=== PATIENT | male | born 1960 | race Hispanic/Latino ===

== ENCOUNTER 2025-06-12 10:36 | Emergency (ER) | payer BC, SELFPAY ==
[2025-06-12 11:05] LABS: #Basophils 0.05 10x3/uL (0.0-0.2); #Eosinophils 0.21 10x3/uL (0.0-0.7); #Monocytes 1.27 10x3/uL (0.11-0.59); #Neutrophils 7.29 10x3/uL (1.40-6.50); %Basophils 0.5 % (0.0-1.0); %Eosinophils 2.1 % (0.0-10.0); %Lymphocytes 13.1 % (21.0-51.0); %Monocytes 12.5 % (0.0-10.0); %Neutrophils 71.4 % (42.0-75.0); Hematocrit 32.3 % (42.0-52.0); Hemoglobin 10.6 g/dL (14.0-18.0); Mean Corpuscular Hemoglobin 28.6 pg (27.0-31.0); Mean Corpuscular Volume 87.1 fL (78.0-98.0); Platelet Count 261 10x3/uL (130-400); Red Blood Cell (RBC) Count 3.71 mill/uL (4.70-6.10); White Blood Cell (WBC) Count 10.20 10x3/uL (4.8-10.8)
[2025-06-12 11:18] LABS: INR-International Normal Ratio 1.1; Prothrombin Time 14.3 sec (12.0-14.7)
[2025-06-12 11:19] LABS: PTT 37.1 sec (22.9-36.1)
[2025-06-12 11:31] LABS: ALT (SGPT) 84 U/L (Less than 45); AST (SGOT) 108 U/L (11-34); Albumin 3.2 g/dL (3.1-4.5); Alkaline Phosphatase 244 U/L (40-110); Anion Gap 11 mmol/L (10-20); BUN (Urea Nitrogen) 17 mg/dL (8.4-25.7); Bilirubin, Total 0.6 mg/dL (0.3-1.2); Calc. Creatinine Clearance 0 mL/min (70-130); Calcium 9.1 mg/dL (7.8-10.44); Carbon Dioxide 25 mmol/L (23-31); Chloride 104 mmol/L (98-107); Globulin 3.9 g/dL (2.4-3.5); Glucose 85 mg/dL (80-115); Lipase 38 U/L (8-78); Potassium 4.0 mmol/L (3.5-5.1); Sodium 136 mmol/L (136-145)
[2025-06-12] MEDS ORDERED: Iopamidol-370 76% 500 ML MDV (1 ML CHARGE) ONE (13:56)
[2025-06-12 14:10] LABS: Bacteria/HPF None Seen HPF (None Seen); CAUTI Indications for Culture Dysuria,urgency,freq; Glucose, Urine (Dipstick) Normal (Negative); Leukocyte Negative Leu/uL (Negative); Protein, Urine (Dipstick) Negative (Neg-Trace); RBC/HPF 0-3 HPF (0-3); Specific Gravity, Urine 1.049 (1.002-1.036); WBC/HPF None Seen HPF (0-3)
[2025-06-12 14:13] LABS: Urine Culture Reflex No No
== END 2025-06-12 12:27 | disposition home or self-care (01) ==
LOC: ERS 10:36
DX: K92.2 Gastrointestinal hemorrhage, unspecified (principal); N13.2 Hydronephrosis with renal and ureteral calculous obstruction; C78.7 Secondary malignant neoplasm of liver and intrahepatic bile duct; E78.5 Hyperlipidemia, unspecified; F17.210 Nicotine dependence, cigarettes, uncomplicated; Z79.82 Long term (current) use of aspirin
CPT/HCPCS: 71045; 74177; 80053; 83690; 84484; 85025; 85610; 85730; 93005; 96374; Q9967

== ENCOUNTER 2025-06-12 17:18 | Inpatient (IN) | payer OTHER, SELFPAY ==
[2025-06-12 17:47] LABS: #Basophils 0.05 10x3/uL (0.0-0.2); #Eosinophils 0.20 10x3/uL (0.0-0.7); #Monocytes 1.08 10x3/uL (0.11-0.59); #Neutrophils 7.13 10x3/uL (1.40-6.50); %Basophils 0.5 % (0.0-1.0); %Eosinophils 2.0 % (0.0-10.0); %Lymphocytes 13.4 % (21.0-51.0); %Monocytes 11.0 % (0.0-10.0); %Neutrophils 72.5 % (42.0-75.0); Hematocrit 31.5 % (42.0-52.0); Hemoglobin 10.3 g/dL (14.0-18.0); Mean Corpuscular Hemoglobin 29.0 pg (27.0-31.0); Mean Corpuscular Volume 88.7 fL (78.0-98.0); Platelet Count 252 10x3/uL (130-400); Red Blood Cell (RBC) Count 3.55 mill/uL (4.70-6.10); White Blood Cell (WBC) Count 9.84 10x3/uL (4.8-10.8)
[2025-06-12 18:06] LABS: ALT (SGPT) 79 U/L (Less than 45); AST (SGOT) 99 U/L (11-34); Albumin 3.0 g/dL (3.1-4.5); Alkaline Phosphatase 235 U/L (40-110); Anion Gap 15 mmol/L (10-20); BUN (Urea Nitrogen) 17 mg/dL (8.4-25.7); Bilirubin, Total 0.5 mg/dL (0.3-1.2); Calc. Creatinine Clearance 0 mL/min (70-130); Calcium 8.4 mg/dL (7.8-10.44); Carbon Dioxide 21 mmol/L (23-31); Chloride 104 mmol/L (98-107); Globulin 3.6 g/dL (2.4-3.5); Glucose 146 mg/dL (80-115); Potassium 3.9 mmol/L (3.5-5.1); Sodium 136 mmol/L (136-145)
[2025-06-12] MEDS ORDERED: Acetaminophen 325 MG TAB PO PRN (20:54)
[2025-06-12] MEDS ORDERED: Ondansetron PF 4 MG/2 ML Vial IVP PRN (20:54)
[2025-06-12 21:39] VITALS: BMI 29.0
[2025-06-12] MEDS: Pantoprazole 40 MG VIAL IVP SCH (21:44)
[2025-06-13 00:40] LABS: Hematocrit 29.8 % (42.0-52.0); Hemoglobin 9.4 g/dL (14.0-18.0)
[2025-06-13 06:56] LABS: #Basophils 0.07 10x3/uL (0.0-0.2); #Eosinophils 0.27 10x3/uL (0.0-0.7); #Monocytes 1.28 10x3/uL (0.11-0.59); #Neutrophils 7.71 10x3/uL (1.40-6.50); %Basophils 0.7 % (0.0-1.0); %Eosinophils 2.5 % (0.0-10.0); %Lymphocytes 11.9 % (21.0-51.0); %Monocytes 12.0 % (0.0-10.0); %Neutrophils 72.3 % (42.0-75.0); Hematocrit 31.0 % (42.0-52.0); Hemoglobin 10.3 g/dL (14.0-18.0); Mean Corpuscular Hemoglobin 29.2 pg (27.0-31.0); Mean Corpuscular Volume 87.8 fL (78.0-98.0); Platelet Count 262 10x3/uL (130-400); Red Blood Cell (RBC) Count 3.53 mill/uL (4.70-6.10); White Blood Cell (WBC) Count 10.66 10x3/uL (4.8-10.8)
[2025-06-13 07:10] LABS: ALT (SGPT) 77 U/L (Less than 45); AST (SGOT) 100 U/L (11-34); Albumin 2.9 g/dL (3.1-4.5); Alkaline Phosphatase 220 U/L (40-110); Anion Gap 14 mmol/L (10-20); BUN (Urea Nitrogen) 17 mg/dL (8.4-25.7); Bilirubin, Total 0.8 mg/dL (0.3-1.2); Calc. Creatinine Clearance 93 mL/min (70-130); Calcium 8.4 mg/dL (7.8-10.44); Carbon Dioxide 23 mmol/L (23-31); Chloride 103 mmol/L (98-107); Globulin 3.6 g/dL (2.4-3.5); Glucose 75 mg/dL (80-115); Potassium 4.1 mmol/L (3.5-5.1); Sodium 136 mmol/L (136-145)
[2025-06-13 13:16] LABS: Iron 23 ug/dL (65-175); Iron Binding Capacity, Total 203 mcg/dL (261-462)
[2025-06-13 14:48] LABS: Hematocrit 29.9 % (42.0-52.0); Hemoglobin 9.4 g/dL (14.0-18.0)
[2025-06-14 06:43] LABS: #Basophils 0.07 10x3/uL (0.0-0.2); #Eosinophils 0.23 10x3/uL (0.0-0.7); #Monocytes 1.40 10x3/uL (0.11-0.59); #Neutrophils 8.15 10x3/uL (1.40-6.50); %Basophils 0.6 % (0.0-1.0); %Eosinophils 2.0 % (0.0-10.0); %Lymphocytes 14.9 % (21.0-51.0); %Monocytes 12.0 % (0.0-10.0); %Neutrophils 70.0 % (42.0-75.0); Hematocrit 30.6 % (42.0-52.0); Hemoglobin 9.7 g/dL (14.0-18.0); Mean Corpuscular Hemoglobin 28.3 pg (27.0-31.0); Mean Corpuscular Volume 89.2 fL (78.0-98.0); Platelet Count 256 10x3/uL (130-400); Red Blood Cell (RBC) Count 3.43 mill/uL (4.70-6.10); White Blood Cell (WBC) Count 11.64 10x3/uL (4.8-10.8)
[2025-06-14 07:01] LABS: ALT (SGPT) 72 U/L (Less than 45); AST (SGOT) 108 U/L (11-34); Albumin 3.0 g/dL (3.1-4.5); Alkaline Phosphatase 234 U/L (40-110); Anion Gap 12 mmol/L (10-20); BUN (Urea Nitrogen) 16 mg/dL (8.4-25.7); Bilirubin, Total 0.9 mg/dL (0.3-1.2); Calc. Creatinine Clearance 95 mL/min (70-130); Calcium 8.3 mg/dL (7.8-10.44); Carbon Dioxide 24 mmol/L (23-31); Chloride 102 mmol/L (98-107); Globulin 3.6 g/dL (2.4-3.5); Glucose 75 mg/dL (80-115); Potassium 4.2 mmol/L (3.5-5.1); Sodium 134 mmol/L (136-145)
[2025-06-14 07:20] LABS: HBSAB Concentration Less than 8.00 mIU/mL; Hep B Core Total Ab NONREACTIVE (NonReactive); Hep B Core Total Index 0.20 S/CO (0-0.79); Hep B Surf Ag NONREACTIVE S/CO (NonReactive); Hep C IgG Ab NONREACTIVE S/CO (NonReactive); Hep C Index 0.17 S/CO (0-0.79)
[2025-06-14] MEDS ORDERED: PROPOFOL 200 MG/20 ML VIAL ONE (10:18)
[2025-06-14] MEDS ORDERED: Iopamidol-370 76% 500 ML MDV (1 ML CHARGE) ONE (15:08)
[2025-06-14 16:44] VITALS: BP 122/77; TEMP 98.6
[2025-06-15] MEDS ORDERED: FLU (Fluad Triv) 25-26 (65UP)PF 45 MCG/0.5 ML Syringe IM ONE (09:00)
[2025-06-15] MEDS ORDERED: PNEUMOC 20-VAL CONJ-DIP CRM/PF 0.5 ML SYRINGE IM ONE (09:00)
== END 2025-06-14 16:54 | disposition home or self-care (01) | DRG 378 ==
LOC: ERS 17:18 → T4-B 18:16
PROVIDERS: ADMIT Internal Medicine; ATTEND Internal Medicine
PROC: 0DB58ZX Excision of Esophagus, Via Natural or Artificial Opening Endoscopic, Diagnostic (ICD-10-PCS; principal; 2025-06-14)
DX: K92.2 Gastrointestinal hemorrhage, unspecified (principal); C18.9 Malignant neoplasm of colon, unspecified; N13.30 Unspecified hydronephrosis; D62 Acute posthemorrhagic anemia; E46 Unspecified protein-calorie malnutrition; C78.7 Secondary malignant neoplasm of liver and intrahepatic bile duct; K76.6 Portal hypertension; M19.90 Unspecified osteoarthritis, unspecified site; Z88.0 Allergy status to penicillin; I25.10 Atherosclerotic heart disease of native coronary artery without angina pectoris; I10 Essential (primary) hypertension; E78.5 Hyperlipidemia, unspecified; Z95.5 Presence of coronary angioplasty implant and graft; F17.210 Nicotine dependence, cigarettes, uncomplicated; Z68.29 Body mass index [BMI] 29.0-29.9, adult; K31.89 Other diseases of stomach and duodenum
CPT/HCPCS: 36415; 36416; 71260; 80053; 82728; 83540; 83550; 85025; 86704; 86706; 86708; 86803; 86850; 86900; 86901; 87340; 88305; 88341; 88342; 99285; J2250; J2470; J2704; J7042; Q9967